=== PATIENT | male | born 1985 | race Two or more races ===

== ENCOUNTER → 2016-07-08 | Outpatient (REF) | payer OTHER | END | disposition home or self-care (01) | LOC: M SFHCLERA 09:42 | PROVIDERS: ATTEND Nurse Practitioner Family | DX: J02.9 Acute pharyngitis, unspecified (principal) ==

== ENCOUNTER → 2016-12-29 | Day surgery (SDC) | payer OTHER ==
[~2016-12-29] VITALS: Ht 190.5 cm; Wt 98.0 kg
[~2016-12-29] MED LIST: BUPIVACAINE HCL 0.5% 10 ML VIAL As Ordered ONE; BUPIVACAINE/EPIN 0.5% 30 ML VIAL As Ordered ONE; EPINEPHrine 1MG/ML INJ 30ML MD-VIAL As Ordered ONE; GLYCOPYRROLATE INJ 0.2 MG/ML 2 ML VIAL As Ordered ONE; HYDROmorphone HCL 1 MG/ML SYRINGE (J1170) IV PRN; LIDOCAINE 2% INJ 100 MG/5 ML SDV (FOR ANES.) As Ordered ONE; LIDOCAINE W/EPINEPHRINE 1% 20ML VIAL As Ordered ONE; LR 1,000 ML IV ONE; LR 1,000 ML IV SCH; METHYLENE BLUE 0.5% (5MG/ML) 10 ML AMP (PROVAYBLUE)(Q9968 PER 1MG) As Ordered ONE; MIDAZOLAM INJ 2 MG/2 ML VIAL (J2250) As Ordered ONE; NEOSTIGMINE 1MG/ML 5 ML SYRINGE (J2710) As Ordered ONE; NORCO, ANEXSIA 5/325MG TABLET (HYDROcodone/ACETAMINOPHEN) PO PRN; ONDANSETRON 4MG/2ML VIAL (J2405) As Ordered ONE; ONDANSETRON 4MG/2ML VIAL (J2405) IV PRN; PERCOCET 5MG/325MG TAB PO PRN; PROPOFOL 200 MG/20 ML VIAL As Ordered ONE; ROCURONIUM BROMIDE 50 MG/5 ML VIAL/SYRINGE As Ordered ONE; dexameTHASONE 4 MG/ML 1ML VIAL (J1100) As Ordered ONE; fentaNYL 100 MCG/2 ML INJECTION (J3010) As Ordered ONE; fentaNYL 100 MCG/2 ML INJECTION (J3010) IV PRN
[2016-12-29 10:30] VITALS: BP 144/93
--- NOTE | 2016-12-29 23:26 | RO ---
DATE OF PROCEDURE: 12/29/2016 PREPROCEDURE DIAGNOSIS: Nasal septal deviation, chronic tonsillitis. POSTPROCEDURE DIAGNOSIS: Nasal septal deviation, chronic tonsillitis. OPERATIVE PROCEDURES: Tonsillectomy, septoplasty. SURGEON: Alexsander Gleason MD SNUBBER: ANESTHESIA: General. DESCRIPTION OF PROCEDURE: Under general anesthesia with the patient intubated, a Marin-Rufino mouth gag was inserted. The tonsillar area was infiltrated with lidocaine, epinephrine, and Marcaine. Using a Coblator setting at 6 and 4, the tonsil was dissected free from its bed on both sides. The base and apex and other areas were cauterized with a setting of 4 on the Coblator. The same procedure performed on both sides. Minimal blood loss. The Marin-Rufino gag was removed and a nasogastric tube was passed to suction the upper esophagus. The patient was draped in the usual manner and then pledgets of adrenalin 1:100,000 were used in the nose and the nose was infiltrated with lidocaine and epinephrine. I started by making an incision anterior on the left side and elevated the subperichondrial periosteal plane. This was deviated towards that left side. I inferiorly made an incision along the quadrangular cartilage and dividing the cartilage from the ethmoid plate. I then elevated the periosteal mouth of the maxillary crest. Ethmoid plate and vomer then removed portions of ethmoid plate, maxillary crest and vomer which were deviated towards the left side. Once this was done, the septum was straight. The incision was closed with interrupted #4-0 Vicryl and #4-0 chromic suture. Less than 10 mL estimated blood loss. The patient tolerated the procedure well, was extubated and transferred to the recovery room in excellent condition.
== END | disposition home or self-care (01) ==
LOC: M SDC 06:46
PROVIDERS: ATTEND Otolaryngology
DX: J34.2 Deviated nasal septum (principal); J35.01 Chronic tonsillitis; F17.210 Nicotine dependence, cigarettes, uncomplicated; Z88.8 Allergy status to other drugs, medicaments and biological substances
CPT/HCPCS: 30520; 42826; 88300; 88302; J1100; J2250; J2405; J2710; J3010; Q9968